=== PATIENT | female | born 1960 | race American Indian/Alaskan Native ===

== ENCOUNTER 2016-10-11 23:36 | Emergency (ER) | payer OTHER ==
--- NOTE | ~2016-10-11 | CR72 ---
[facility] A Service of [facility] RADIOLOGY TEXT RESULTS PATIENT: AYESHA OBANDO LOCATION: [facility] : 56 UNIT #: [id number] AGE: [address]: Gary Oh MD SEX: F ORDER DR: [id number] [facility] [address] [place], [place] [address] [id number] MR#: [id number] #: [id number] NAME: AYESHA OBANDO : 1960 SEX: F STUDY DATE/TIME: 10/11/2016 23:01 UNIT: [facility] ROOM: STUDY DESCRIPTION: CR Chest Single View Portable Attending Physician: Ed Pedro Alvarado M.D. Ordering Physician: Ed Pedro Alvarado M.D. Primary Care Physician: No Primary Care Physician MEDICAL IMAGING REPORT This report is preliminary unless electronic signature is present EXAM Portable AP view of the chest COMPARISON February 27, 2016 and December 07, 2012. INDICATION 56-year-old female with altered mental status today. Suspected drug overdose. History of hypertension. FINDINGS No pneumothorax, pleural effusion or acute airspace disease. Cardiomediastinal silhouette is within normal limits. IMPRESSION No acute radiographic abnormality. Dictated by... Clay Wells M.D. THIS IS AN ELECTRONICALLY VERIFIED REPORT Clay Wells M.D. at 10/15/2016 8:01 AM KAYLA/aria TD: 10/12/2016 05:53 JOB #: [id number] MEDICAL IMAGING REPORT COPY
--- NOTE | ~2016-10-11 | CT71 ---
[facility] A Service of [facility] RADIOLOGY TEXT RESULTS PATIENT: AYESHA OBANDO LOCATION: [facility] : 56 UNIT #: [id number] AGE: [address]: Gary Oh MD SEX: F ORDER DR: [id number] [facility] [address] [place], [place] [address] [id number] E MR#: [id number] #: [id number] NAME: AYESHA OBANDO. : 1960 SEX: F STUDY DATE/TIME: 10/11/2016 23:18 UNIT: [facility] ROOM: STUDY DESCRIPTION: CT Head Wo Contrast Attending Physician: Er Doctor [facility] Ordering Physician: Gary Oh M.D. Primary Care Physician: Primary Care Physician No MEDICAL IMAGING REPORT This report is preliminary unless electronic signature is present EXAM CT head without IV contrast COMPARISON October 31, 2012. INDICATION 56-year-old female with frontal headache tonight. Accidental drug overdose. History of hypertension. TECHNIQUE This CT examination was performed with one or more of the following radiation dose reduction techniques: automatic exposure control, adjustment of mA and/or kV according to patient size, and iterative reconstruction. FINDINGS Visualized mastoid air cells and middle ears are well-aerated. There is mild mucosal thickening of the frontal sinuses as well as the ethmoid air cells and right maxillary sinus. Small air-fluid level in the left maxillary sinus. No acute fractures or suspicious osseous lesions. Normal cerebral volume. No abnormal extraaxial fluid collection or mass effect. No acute intracranial hemorrhage. Evaluation of the cerebral parenchyma is mildly limited by motion. There is no evidence of acute ischemia. There is a chronic-appearing lacunar infarct of the left frontal lobe near the anterior horn of the left lateral ventricle. IMPRESSION 1. Chronic paranasal sinus disease with small left maxillary air-fluid level, possibly representing an acute sinusitis. Clinical correlation recommended. 2. No definite acute intracranial abnormality. There is a new focal area of hypoattenuation in the left frontal white matter adjacent to the [facility] A Service [facility] RADIOLOGY TEXT RESULTS PATIENT: AYESHA OBANDO LOCATION: [facility] : 56 UNIT #: [id number] AGE: [address]: Gary Oh MD SEX: F ORDER DR: anterior horn of the left lateral ventricle measuring up to 5 mm which has an appearance of a chronic lacunar infarct although new since 2012. Dictated by... Clay Wells M.D. THIS IS AN ELECTRONICALLY VERIFIED REPORT Clay Wells M.D. at 10/15/2016 7:56 AM KAYLA/pascale TD: 10/12/2016 06:39 JOB #: [id number] MEDICAL IMAGING REPORT COPY
--- NOTE | ~2016-10-11 | EKG ---
PATIENT: AYESHA OBANDO UNIT #: [id number] Ventricular Rate: 111 BPM Atrial Rate: 111 BPM P-R Interval: 160 ms QRS Duration: 80 ms Q-T Interval: 342 ms QTC Calculation(Bezet): 465 ms P [place]: 52 degrees Calculated R [place]: 24 degrees Calculated T [place]: 98 degrees Diagnosis Line: Sinus tachycardia Diagnosis Line: Nonspecific ST and T wave abnormality Diagnosis Line: Abnormal ECG Diagnosis Line: When compared with ECG of 27-FEB-2016 11:17, Diagnosis Line: Vent. rate has increased BY 50 BPM Diagnosis Line: Nonspecific T wave abnormality no longer evident Diagnosis Line: in Anterior leads Diagnosis Line: Nonspecific T wave abnormality, worse in Lateral Diagnosis Line: leads Diagnosis Line: Confirmed by ANICETO GAMEZ MD ([id number]) on Diagnosis Line: 10/12/2016 11:58:01 AM INTERPRETING MD: CARLENE
[~2016-10-11 23:36] MED LIST: B COMPLEX-VITA1 EACH PO; B COMPLEX1 TAB PO; CAL MAG ZINC +1 EAC1 PO; CALCIUM-MAG-ZIN1 TAB PO; CALCIUM-MAGNES1 EAC1 PO; CAT S CLAW PO; CAT'S CLAW500 MG PO; CLEOCIN PO; CYANOCOBALAM1000 MCG PO; DARVON65 MG PO; DAZIDOX10 MG PO; DURAGESIC TOP; DURAGESIC100 MCG EXT; FENTANYL; FENTANYL1 EAC1 TD; FLEXERIL10 MG PO; GABAPENTIN300 MG PO; HCTZ PO; HYZAAR 100-25 T1 TA1 PO; HYZAAR 100-25 T1 TAB PO; IRON SUPPLEMENT; KLONOPIN0.5 MG PO; LOSARTAN-HCTZ1 EAC1 PO; MAG-OXIDE400 MG PO; MULTI-VITAMIN1 EAC1 PO; MULTIPLE VITAMI1 T11 PO; NEPHROCAPS CAPSU1 MG PO; NEURONTIN100 MG PO; OXYCODONE HCL30 MG PO; OXYCODONE15 MG PO; OXYIR5 MG PO; OYSTER CALCIUM500 MG PO; PARAFON FORTE500 MG PO; POTASSIUM OTC PO; POTASSIUM99 M2 PO; ROSEHIPS PO; SKELAXIN PO; VALERIAN ROOT PO; VIT B-12 PO; VITAMIN B 12 PO; VITAMIN B PO; VITAMIN C PO; ZINC SULFATE PO; [UNRECOGNIZED DRUG - MIXTURE] PO; [UNRECOGNIZED DRUG - OTHER]; [UNRECOGNIZED DRUG - OTHER] PO; [UNRECOGNIZED DRUG - OTHER] PO
[2016-10-11 23:46] LABS: BASOPHIL% 0.2 % (0-2.5); EOSINOPHIL# 0.1 X10e3 (0-0.7); EOSINOPHIL% 0.9 % (0.0-7.0); HEMATOCRIT 38.7 % (35.0-45.0); HEMOGLOBIN 12.4 gm/dL (12.0-16.0); LYMPHOCYTE# 0.6 X10e3 (1.0-3.5); LYMPHOCYTE% 4.6 % (17.0-45.0); MEAN CELL VOLUME 89.2 FL (83-96); MEAN CORPUSCULAR HEMOGLOBIN 28.5 PG (28-34); MEAN PLATELET VOLUME 7.5 FL (6.5-11.5); MONOCYTE# 0.5 X10e3 (0-1.0); MONOCYTE% 3.9 % (3.0-12.0); NEUTROPHIL# 11.1 X10e3 (1.5-7.1); NEUTROPHIL% 90.4 % (40-75); PLATELET COUNT 203 X10e3 (140-420); RED BLOOD COUNT 4.34 X10e (3.90-5.30); RED CELL DISTRIBUTION WIDTH 14.7 % (11.0-15.5); WHITE BLOOD COUNT 12.3 X10e3 (4.0-10.5)
[2016-10-11 23:52] LABS: DIFF IND NO
[2016-10-12 00:11] LABS: ALBUMIN SERUM 3.9 g/dL (3.5-5.0); ALKALINE PHOSPHATASE 94 U/L (32-92); ALT (SGPT) 17 U/L (10-40); AST (SGOT) 27 U/L (10-42); BILIRUBIN, DIRECT 0.1 mg/dL (0.0-0.2); BILIRUBIN,INDIRECT 0.3 mg/dL (0.0-0.9); BILIRUBIN,TOTAL 0.4 mg/dL (0.2-2.0); BLOOD UREA NITROGEN 14 mg/dL (9-23); BUN/CREATININE RATIO 12.72; CALCIUM SERUM 8.9 mg/dL (8.4-10.2); CARBON DIOXIDE 32 mmol/L (22-31); CHLORIDE 101 mmol/L (100-111); CREATININE SERUM 1.1 mg/dL (0.6-1.4); GLOM FILT RATE Estimated 54.2 mL/min (>60); GLUCOSE FASTING 152 mg/dL (70-110); POTASSIUM 3.7 mmol/L (3.5-5.1); PROTEIN TOTAL SERUM 7.1 g/dL (6.0-8.3); SALICYLATE <4.0 mg/dL; SODIUM 141 mmol/L (135-145)
[2016-10-12 00:20] LABS: ACETAMINOPHEN <10 ug/mL; ALCOHOL BLOOD <5 mg/dL (0)
[2016-10-12 00:35] LABS: URINE SOURCE CLEAN CATCH
[2016-10-12 00:44] LABS: URINE APPEARANCE CLEAR; URINE BILIRUBIN NEG (NEG); URINE BLOOD TRACE (NEG); URINE COLOR YELLOW; URINE GLUCOSE 500 MG/DL (NEG); URINE KETONE NEG (NEG); URINE LEUKOCYTE ESTERASE 1+ (NEG); URINE NITRATE NEG (NEG); URINE PH 6.5 (5-8); URINE PROTEIN 2+ (NEG); URINE SPECIFIC GRAVITY 1.017 (1.003-1.035)
[2016-10-12 00:47] LABS: CULTURE INDICATED? YES; URINE BACTERIA AUWI NEG (NEGATIVE); URINE SQUAMOUS EPITHELIAL CELL FEW /[HPF]
[2016-10-12 01:01] LABS: AMPHETAMINE NEG (NEG); BARBITURATES NEG (NEG); BENZODIAZEPINES POS (NEG); COCAINE NEG (NEG); MARIJUANA NEG (NEG); OPIATES POS (NEG); TRICYCLIC ANTIDEPRESSANTS NEG (NEG); U METHADONE NEG (NEG)
== END 2016-10-12 02:26 | disposition home or self-care (01) ==
LOC: CED 23:36
PROVIDERS: Emergency Medicine
DX: T40.601A Poisoning by unspecified narcotics, accidental (unintentional), initial encounter (principal); J96.90 Respiratory failure, unspecified, unspecified whether with hypoxia or hypercapnia; I10 Essential (primary) hypertension; Z88.1 Allergy status to other antibiotic agents; Z88.5 Allergy status to narcotic agent; Y92.810 Car as the place of occurrence of the external cause
CPT/HCPCS: 36415; 70450; 71010; 80048; 80076; 80307; 81003; 82947; 85025; 87086; 93005; 99284; G0480